=== PATIENT | female | born 1945 | race Hispanic/Latino ===

== ENCOUNTER 2018-01-29 11:30 | Emergency (ER) | payer OTHER ==
--- NOTE | 2018-01-29 14:38 | ER ---
Nurse's Notes [facility] Name: Joie John Age: 72 yrs Sex: Female : 1945 Arrival Date: 01/29/2018 Time: 11:35 Bed Waiting Private MD: Phyllis Paris Diagnosis: Presentation: 01/29 11:40 Presenting complaint: Patient states: Reports having headache and feeling dizzy for 7 aj days. Patient reports symptoms started when she began taking her HTN and DM medications. Transition of care: patient was not received from another setting of care. Onset of symptoms was January 23, 2018. Risk Assessment: Do you want to hurt yourself or someone else? Patient reports no desire to harm self or others. Initial Sepsis Screen: Does the patient meet any 2 criteria? No. Patient's initial sepsis screen is negative. Does the patient have a suspected source of infection? No. Patient's initial sepsis screen is negative. Care prior to arrival: None. 11:40 Method Of Arrival: Ambulatory aj 11:40 Acuity: STEVEN 3 aj Triage Assessment: 11:42 Headache History: The patient has had previous headaches. General: Appears in no aj apparent distress. comfortable, Behavior is calm, cooperative, appropriate for age. Pain: Complains of pain in face and scalp Pain Pain began 7 days ago Also complains of. Neuro: Level of Consciousness is awake, alert, obeys commands, Oriented to person, place, time, situation, Appropriate for age Cardiac Rehab Nurse are equal bilaterally Moves all extremities. Full function Gait is steady, Speech is normal, Facial symmetry appears normal, Pupils are PERRLA, Intact Reports dizziness, headache. Respiratory: Airway is patent Respiratory effort is even, unlabored, Respiratory pattern is regular, symmetrical. Derm: Skin is intact, is healthy with good turgor, Skin is pink, warm \T\ dry. normal. Historical: - Allergies: 11:42 No Known Allergies; aj - PMHx: 11:42 Diabetes - NIDDM; Hypertension; aj - PSHx: 11:42 None; aj - Immunization history:: Adult Immunizations up to date. - Social history:: Smoking status: Patient/guardian denies using tobacco. - Ebola Screening: : Patient negative for fever greater than or equal to 101.5 degrees Fahrenheit, and additional compatible Ebola Virus Disease symptoms Patient denies exposure to infectious person Patient denies travel to an Ebola-affected area in the 21 days before illness onset No symptoms or risks identified at this time. Vital Signs: 11:42 BP 136 / 78; Pulse 91; Resp 16; Temp 97.6; Pulse Ox 98% on R/A; Weight 54.88 kg; Height aj 5 ft. 2 in. (157.48 cm) (M); 11:42 Body Mass Index 22.13 (54.88 kg, 157.48 cm) aj ED Course: 11:35 Patient arrived in ED. mr 11:35 Phyllis Paris MD is Private Physician. mr 11:42 Triage completed. aj 11:45 Arm band placed on left wrist. Patient placed in waiting room, Patient notified of wait aj time. 14:18 Hemanth Sanchez MD is Attending Physician. kdr 14:24 Patient's name was called from ER lobby. No response. nicole 14:32 Patient's name was called from ER lobby. No response. aj 14:37 Patient's name was called from ER lobby. No response. aj Administered Medications: No medications were administered Outcome: 14:37 Eloped from waiting room, before seeing physician Time discovered patient gone: aj January 29, 2018 at 14:38 14:38 Patient left the ED. aj Signatures: Patricia Couch, RN RN dmPage Zhou RN RN aj Rittger, Kevin, MD MD kdr RiveraJosie mr
== END 2018-01-29 14:38 | disposition left against medical advice (07) ==
LOC: ER 11:30
DX: Z53.21 Procedure and treatment not carried out due to patient leaving prior to being seen by health care provider (principal)
CPT/HCPCS: 99281

== ENCOUNTER 2023-03-28 17:32 | Emergency (ER) | payer OTHER ==
--- OUTSIDE RECORDS SUMMARY | 2023-03-28 17:37 | XMS REPORT | Continuity of Care Document ---
:1945 Author Organization [facility] t Address [address] [place] [address] [place] [id number] Care Team Providers Name Role Phone Esteban, Chrissie Attending Clinician Unavailable Phyllis Paris Attending Clinician Unavailable Payers Payer Name Policy Type Policy Number Effective Date Expiration Date S [place] [id number] 2021 Common [employer]ALTHC[employer] DUAL 00:00:00 [facility] Problems Condition Condition Condition Status Onset Resolution Last Treating Co mments Source Name Details Category Date Date Treatment Clinician Date [id number] 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, - [facility]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, [facility] [id number] Decreased Problem Com mon hearing of [facility] left ear [facility] [id number] Stress at Problem Com mon home [facility] Diabetes Diabetes Problem Commo n mellitus DMII [facility] without without - [facility] complicati complicati [facility] [id number] Uncontroll Problem Co mmon ed type 2 [facility] diabetes - [facility] mellitus without [facility] complicati Medica on, [place] without long-term current use of insulin Essential Benign Problem Common hypertensi essential Spi rit on HTN [facility] Hyperlipid Hyperlipid Problem C ommon emia emia [facility] [id number] Hypoglycem Problem Co mmon ia [facility] [id number] Dizziness Problem Com mon [facility] Seasonal Seasonal Problem Commo n allergy allergies [facility] [id number] Bilateral Problem Comm on hearing [facility] loss, - [facility]I unspecifie [facility] loss type [facility] [id number] +5th digit Problem Co mmon eff [facility] 02/24/20*Ch - [facility]I ronic kidney [facility] disease, Medical stage 3 Center (moderate) Mild major Current Problem Comm on depression mild Spirit , single episode of - CH I episode major depressive [facility] disorder, Medical unspecifie Center d whether recurrent [id number] Blood Problem Common glucose [facility] lower than - [facility] prior [facility] [id number] Type 2 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 Social History Social Habit Start Date Stop Date Quantity Comments Source History of Tobacco Use Co mmon [facility] Sex Assigned At Com mon [facility] Smoking Status Start Date Stop Date Source Never Smoker [facility] Medications Ordered Filled Start Stop Current Ordering Indication Dosage Frequency Signature Comments Components Source Medication Medication Date Date Medication? Clinician (SIG) Name Name Contour Contour No BID Contour Test - Test - 02-19 Test - 00:00: 00 Contour Contour No BID Contour Test - Test - 02-19 Test - 00:00: 00 Contour Contour No BID Contour Test - Test - 02-19 Test - 00:00: 00 Contour Contour No BID Contour Test - Test - 02-19 Test - 00:00: 00 Contour Contour 0 No BID Contour Test - Test - 02-19 Test - 00:00: 00 ALPRAZolam ALPRAZolam 2020-05 No 1{table ALPRAZolam 0.25 MG 0.25 MG 0-12 t} 0.25 MG 00:00: 00 Triamcinolo Triamcinolo 2019-05 No 1{appli BID Triamcinol ne ne - cation_ one Acetonide Acetonide 00:00: to_affe Acetonide 0.1 % 0.1 % 00 cted_ar 0.1 % ea} Triamcinolo Triamcinolo 2019-05 No 1{appli BID Triamcinol ne ne 06-16 cation_ one Acetonide Acetonide 00:00: to_affe Acetonide 0.1 % 0.1 % 00 cted_ar 0.1 % ea} Triamcinolo Triamcinolo 2020- No 1{appli BID Triamcinol ne ne 06-16 cation_ one Acetonide Acetonide 00:00: to_affe Acetonide 0.1 % 0.1 % 00 cted_ar 0.1 % ea} Triamcinolo Triamcinolo 2020 No 1{appli BID Triamcinol ne ne 06-16 cation_ one Acetonide Acetonide 00:00: to_affe Acetonide 0.1 % 0.1 % 00 cted_ar 0.1 % ea} Triamcinolo Triamcinolo 2019-05 No 1{appli BID Triamcinol ne ne 06-16 cation_ one Acetonide Acetonide 00:00: to_affe Acetonide 0.1 % 0.1 % 00 cted_ar 0.1 % ea} Triamcinolo Triamcinolo 2019-05 No 1{appli BID Triamcinol ne ne 06-16 cation_ one Acetonide Acetonide 00:00: to_affe Acetonide 0.1 % 0.1 % 00 cted_ar 0.1 % ea} Triamcinolo Triamcinolo 2020- No 1{appli BID Triamcinol ne ne 06-16 cation_ one Acetonide Acetonide 00:00: to_affe Acetonide 0.1 % 0.1 % 00 cted_ar 0.1 % ea} Triamcinolo Triamcinolo 2020 No 1{appli BID Triamcinol ne ne 06-16 cation_ one Acetonide Acetonide 00:00: to_affe Acetonide 0.1 % 0.1 % 00 cted_ar 0.1 % ea} Triamcinolo Triamcinolo 2020 No 1{appli BID Triamcinol ne ne - cation_ one Acetonide Acetonide 00:00: to_affe Acetonide 0.1 % 0.1 % 00 cted_ar 0.1 % ea} Triamcinolo Triamcinolo 2020 No 1{appli BID Triamcinol ne ne 1-22 cation_ one Acetonide Acetonide 00:00: to_affe Acetonide 0.1 % 0.1 % 00 cted_ar 0.1 % ea} Triamcinolo Triamcinolo 2019-05 No 1{appli BID Triamcinol ne ne 1-22 cation_ one Acetonide Acetonide 00:00: to_affe Acetonide 0.1 % 0.1 % 00 cted_ar 0.1 % ea} Triamcinolo Triamcinolo 2019-05 No 1{appli BID Triamcinol ne ne 1-22 cation_ one Acetonide Acetonide 00:00: to_affe Acetonide 0.1 % 0.1 % 00 cted_ar 0.1 % ea} Citalopram Citalopram Yes Na Paris 1 tablet Common Hydrobromid Hydrobromid 1-17 S pirit e e 00:00: - [facility] Jardiance Jardiance 2018-0 2020- No Na Paris 1 tablet Common 4 04-04 Spirit 00:00: 00:00 - [facility]I 00 :00 [facility] Lancets Lancets 2017- Yes Na Paris as Comm on Ultra Fine Ultra Fine 2-11 directed Spirit 00:00: [facility] Contour Contour 2018-0 Yes Na Paris strip Com mon testing testing 830 Spirit strips strips 00:00: [facility] Crestor Crestor 2018-0 Yes Na Paris 1 tablet Common 830 Spirit 00:00: - [facility] Aspirin Aspirin Yes Na [place] 1 tablet Co mmon Adult Low Adult Low Spiri t Dose Dose - [facility] Tradjenta Tradjenta Yes Na Paris 1 tablet Common [facility] [place] 3 [place]ou[place] 3 Yes Na Paris 1 capsule C ommon [facility] Lisinopril Lisinopril Yes Na Paris 1 tablet Common [facility] Metformin Metformin Yes Na [place] 1 tablet Common HCl HCl with meals [facility] Sertraline Sertraline Yes Na [place] 1 tablet Common HCl HCl [facility] Loratadine Loratadine Yes Na [place] 1 tablet Common [facility] - [facility]I [facility] Triamcinolo Triamcinolo Yes Na [place] 1 Common ne ne applicatio Spirit Acetonide Acetonide n to - [facility]I affected [facility] metFORMIN metFORMIN No 1{table BID metFORMIN HCl 1000 MG HCl 1000 MG t_with_ HCl 1000 meals} MG Tradjenta 5 Tradjenta 5 No 1{table QD Tradjenta MG MG t} 5 MG Lisinopril Lisinopril No 1{table QD Lisinopril 2.5 MG 2.5 MG t} 2.5 MG Lancets Lancets No Lancets Ultra Fine Ultra Fine Ultra Fine - - - ALPRAZolam ALPRAZolam No 1{table ALPRAZolam 0.25 MG 0.25 MG t} 0.25 MG One Touch One Touch No QD One Touch Verio n/s Verio n/s Verio n/s [place] 3 Hou[place] 3 No 1{capsu QD [place] 3 1000 MG 1000 MG le} 1000 MG Tradjenta 5 Tradjenta 5 No 1{table QD Tradjenta MG MG t} 5 MG Glucometer Glucometer No Glucometer n/s n/s n/s Triamcinolo Triamcinolo No 1{appli BID Triamcinol ne ne cation_ one Acetonide Acetonide to_affe Acetonide 0.5 % 0.5 % cted_ar 0.5 % ea} Lisinopril Lisinopril No 1{table QD Lisinopril 2.5 MG 2.5 MG t} 2.5 MG Citalopram Citalopram No 1{table QD Citalopram Hydrobromid Hydrobromid t} Hydrobromi e 40 MG e 40 MG de 40 MG Loratadine Loratadine No 1{table QD Loratadine 10 MG 10 MG t} 10 MG Jardiance Jardiance No 1{table QD Jardiance 10 MG 10 MG t} 10 MG Lancets Lancets No Lancets Ultra Fine Ultra Fine Ultra Fine - - - metFORMIN metFORMIN No 1{table BID metFORMIN HCl 1000 MG HCl 1000 MG t_with_ HCl 1000 meals} MG Crestor 10 Crestor 10 No 1{table QD Crestor 10 MG MG t} MG Contour Contour No BID Contour testing testing testing strips N/S strips N/S strips N/S Aspirin Aspirin No 1{table QD Aspirin Adult Low Adult Low t} Adult Low Dose 81 MG Dose 81 MG Dose 81 MG Contour Contour No Contour Test - Test - Test - One Touch One Touch No QD One Touch Verio n/s Verio n/s Verio n/s Loratadine Loratadine No 1{table QD Loratadine 10 MG 10 MG t} 10 MG [place] 3 [place]ou[place] 3 No 1{capsu QD [place] 3 1000 MG 1000 MG le} 1000 MG metFORMIN metFORMIN No 1{table BID metFORMIN HCl 1000 MG HCl 1000 MG t_with_ HCl 1000 meals} MG One Touch One Touch No QD One Touch Verio n/s Verio n/s Verio n/s Contour Contour No Contour Test - Test - Test - Triamcinolo Triamcinolo No 1{appli BID Triamcinol ne ne cation_ one Acetonide Acetonide to_affe Acetonide 0.5 % 0.5 % cted_ar 0.5 % ea} Contour Contour No BID Contour testing testing testing strips N/S strips N/S strips N/S Crestor 10 Crestor 10 No 1{table QD Crestor 10 MG MG t} MG Citalopram Citalopram No 1{table QD Citalopram Hydrobromid Hydrobromid t} Hydrobromi e 40 MG e 40 MG de 40 MG Lancets Lancets No Lancets Ultra Fine Ultra Fine Ultra Fine - - - Jardiance Jardiance No 1{table QD Jardiance 10 MG 10 MG t} 10 MG Tradjenta 5 Tradjenta 5 No 1{table QD Tradjenta MG MG t} 5 MG ALPRAZolam ALPRAZolam No 1{table ALPRAZolam 0.25 MG 0.25 MG t} 0.25 MG Aspirin Aspirin No 1{table QD Aspirin Adult Low Adult Low t} Adult Low Dose 81 MG Dose 81 MG Dose 81 MG Glucometer Glucometer No Glucometer n/s n/s n/s Lisinopril Lisinopril No 1{table QD Lisinopril 2.5 MG 2.5 MG t} 2.5 MG Jardiance Jardiance No 1{table QD Jardiance 10 MG 10 MG t} 10 MG Glucometer Glucometer No Glucometer n/s n/s n/s Triamcinolo Triamcinolo No 1{appli BID Triamcinol ne ne cation_ one Acetonide Acetonide to_affe Acetonide 0.5 % 0.5 % cted_ar 0.5 % ea} Lancets Lancets No Lancets Ultra Fine Ultra Fine Ultra Fine - - - Crestor 10 Crestor 10 No 1{table QD Crestor 10 MG MG t} MG Contour Contour No BID Contour testing testing testing strips N/S strips N/S strips N/S metFORMIN metFORMIN No 1{table BID metFORMIN HCl 1000 MG HCl 1000 MG t_with_ HCl 1000 meals} MG Citalopram Citalopram No 1{table QD Citalopram Hydrobromid Hydrobromid t} Hydrobromi e 40 MG e 40 MG de 40 MG Loratadine Loratadine No 1{table QD Loratadine 10 MG 10 MG t} 10 MG Aspirin Aspirin No 1{table QD Aspirin Adult Low Adult Low t} Adult Low Dose 81 MG Dose 81 MG Dose 81 MG One Touch One Touch No QD One Touch Verio n/s Verio n/s Verio n/s Tradjenta 5 Tradjenta 5 No 1{table QD Tradjenta MG MG t} 5 MG [place] 3 Houma 3 No 1{capsu QD [place] 3 1000 MG 1000 MG le} 1000 MG Contour Contour No Contour Test - Test - Test - ALPRAZolam ALPRAZolam No 1{table ALPRAZolam 0.25 MG 0.25 MG t} 0.25 MG Lisinopril Lisinopril No 1{table QD Lisinopril 2.5 MG 2.5 MG t} 2.5 MG Jardiance Jardiance No 1{table QD Jardiance 10 MG 10 MG t} 10 MG Glucometer Glucometer No Glucometer n/s n/s n/s Triamcinolo Triamcinolo No 1{appli BID Triamcinol ne ne cation_ one Acetonide Acetonide to_affe Acetonide 0.5 % 0.5 % cted_ar 0.5 % ea} Lancets Lancets No Lancets Ultra Fine Ultra Fine Ultra Fine - - - Crestor 10 Crestor 10 No 1{table QD Crestor 10 MG MG t} MG Contour Contour No BID Contour testing testing testing strips N/S strips N/S strips N/S metFORMIN metFORMIN No 1{table BID metFORMIN HCl 1000 MG HCl 1000 MG t_with_ HCl 1000 meals} MG Citalopram Citalopram No 1{table QD Citalopram Hydrobromid Hydrobromid t} Hydrobromi e 40 MG e 40 MG de 40 MG Loratadine Loratadine No 1{table QD Loratadine 10 MG 10 MG t} 10 MG Aspirin Aspirin No 1{table QD Aspirin Adult Low Adult Low t} Adult Low Dose 81 MG Dose 81 MG Dose 81 MG One Touch One Touch No QD One Touch Verio n/s Verio n/s Verio n/s Tradjenta 5 Tradjenta 5 No 1{table QD Tradjenta MG MG t} 5 MG [place] 3 Hou[place] 3 No 1{capsu QD [place] 3 1000 MG 1000 MG le} 1000 MG Contour Contour No Contour Test - Test - Test - ALPRAZolam ALPRAZolam No 1{table ALPRAZolam 0.25 MG 0.25 MG t} 0.25 MG Lisinopril Lisinopril No 1{table QD Lisinopril 2.5 MG 2.5 MG t} 2.5 MG Jardiance Jardiance No 1{table QD Jardiance 10 MG 10 MG t} 10 MG Glucometer Glucometer No Glucometer n/s n/s n/s Triamcinolo Triamcinolo No 1{appli BID Triamcinol ne ne cation_ one Acetonide Acetonide to_affe Acetonide 0.5 % 0.5 % cted_ar 0.5 % ea} Lancets Lancets No Lancets Ultra Fine Ultra Fine Ultra Fine - - - Crestor 10 Crestor 10 No 1{table QD Crestor 10 MG MG t} MG Contour Contour No BID Contour testing testing testing strips N/S strips N/S strips N/S metFORMIN metFORMIN No 1{table BID metFORMIN HCl 1000 MG HCl 1000 MG t_with_ HCl 1000 meals} MG Citalopram Citalopram No 1{table QD Citalopram Hydrobromid Hydrobromid t} Hydrobromi e 40 MG e 40 MG de 40 MG Loratadine Loratadine No 1{table QD Loratadine 10 MG 10 MG t} 10 MG Aspirin Aspirin No 1{table QD Aspirin Adult Low Adult Low t} Adult Low Dose 81 MG Dose 81 MG Dose 81 MG One Touch One Touch No QD One Touch Verio n/s Verio n/s Verio n/s Tradjenta 5 Tradjenta 5 No 1{table QD Tradjenta MG MG t} 5 MG [place] 3 [place]ou[place] 3 No 1{capsu QD [place] 3 1000 MG 1000 MG le} 1000 MG Contour Contour No Contour Test - Test - Test - ALPRAZolam ALPRAZolam No 1{table ALPRAZolam 0.25 MG 0.25 MG t} 0.25 MG Lisinopril Lisinopril No 1{table QD Lisinopril 2.5 MG 2.5 MG t} 2.5 MG Crestor 10 Crestor 10 No 1{table QD Crestor 10 MG MG t} MG Contour Contour No Contour Test - Test - Test - Jardiance Jardiance No 1{table QD Jardiance 10 MG 10 MG t} 10 MG Tradjenta 5 Tradjenta 5 No 1{table QD Tradjenta MG MG t} 5 MG Aspirin Aspirin No 1{table QD Aspirin Adult Low Adult Low t} Adult Low Dose 81 MG Dose 81 MG Dose 81 MG [place] 3 [place] 3 No 1{capsu QD [place] 3 1000 MG 1000 MG le} 1000 MG Loratadine Loratadine No 1{table QD Loratadine 10 MG 10 MG t} 10 MG Triamcinolo Triamcinolo No 1{appli BID Triamcinol ne ne cation_ one Acetonide Acetonide to_affe Acetonide 0.5 % 0.5 % cted_ar 0.5 % ea} Citalopram Citalopram No 1{table QD Citalopram Hydrobromid Hydrobromid t} Hydrobromi e 40 MG e 40 MG de 40 MG One Touch One Touch No QD One Touch Verio n/s Verio n/s Verio n/s ALPRAZolam ALPRAZolam No 1{table ALPRAZolam 0.25 MG 0.25 MG t} 0.25 MG Lancets Lancets No Lancets Ultra Fine Ultra Fine Ultra Fine - - - Glucometer Glucometer No Glucometer n/s n/s n/s metFORMIN metFORMIN No 1{table BID metFORMIN HCl 1000 MG HCl 1000 MG t_with_ HCl 1000 meals} MG Lisinopril Lisinopril No 1{table QD Lisinopril 2.5 MG 2.5 MG t} 2.5 MG Contour Contour No BID Contour testing testing testing strips N/S strips N/S strips N/S Crestor 10 Crestor 10 No 1{table QD Crestor 10 MG MG t} MG Contour Contour No Contour Test - Test - Test - Jardiance Jardiance No 1{table QD Jardiance 10 MG 10 MG t} 10 MG Tradjenta 5 Tradjenta 5 No 1{table QD Tradjenta MG MG t} 5 MG Aspirin Aspirin No 1{table QD Aspirin Adult Low Adult Low t} Adult Low Dose 81 MG Dose 81 MG Dose 81 MG [place] 3 [place] 3 No 1{capsu QD [place] 3 1000 MG 1000 MG le} 1000 MG Loratadine Loratadine No 1{table QD Loratadine 10 MG 10 MG t} 10 MG Triamcinolo Triamcinolo No 1{appli BID Triamcinol ne ne cation_ one Acetonide Acetonide to_affe Acetonide 0.5 % 0.5 % cted_ar 0.5 % ea} Citalopram Citalopram No 1{table QD Citalopram Hydrobromid Hydrobromid t} Hydrobromi e 40 MG e 40 MG de 40 MG One Touch One Touch No QD One Touch Verio n/s Verio n/s Verio n/s ALPRAZolam ALPRAZolam No 1{table ALPRAZolam 0.25 MG 0.25 MG t} 0.25 MG Lancets Lancets No Lancets Ultra Fine Ultra Fine Ultra Fine - - - Glucometer Glucometer No Glucometer n/s n/s n/s metFORMIN metFORMIN No 1{table BID metFORMIN HCl 1000 MG HCl 1000 MG t_with_ HCl 1000 meals} MG Lisinopril Lisinopril No 1{table QD Lisinopril 2.5 MG 2.5 MG t} 2.5 MG Contour Contour No BID Contour testing testing testing strips N/S strips N/S strips N/S Glucometer Glucometer No Glucometer n/s n/s n/s Crestor 10 Crestor 10 No 1{table QD Crestor 10 MG MG t} MG Jardiance Jardiance No 1{table QD Jardiance 10 MG 10 MG t} 10 MG [place] 3 [place]ou[place] 3 No 1{capsu QD [place] 3 1000 MG 1000 MG le} 1000 MG Triamcinolo Triamcinolo No 1{appli BID Triamcinol ne ne cation_ one Acetonide Acetonide to_affe Acetonide 0.5 % 0.5 % cted_ar 0.5 % ea} Loratadine Loratadine No 1{table QD Loratadine 10 MG 10 MG t} 10 MG Citalopram Citalopram No 1{table QD Citalopram Hydrobromid Hydrobromid t} Hydrobromi e 40 MG e 40 MG de 40 MG Aspirin Aspirin No 1{table QD Aspirin Adult Low Adult Low t} Adult Low Dose 81 MG Dose 81 MG Dose 81 MG metFORMIN metFORMIN No 1{table BID metFORMIN HCl 1000 MG HCl 1000 MG t_with_ HCl 1000 meals} MG Tradjenta 5 Tradjenta 5 No 1{table QD Tradjenta MG MG t} 5 MG Lisinopril Lisinopril No 1{table QD Lisinopril 2.5 MG 2.5 MG t} 2.5 MG Lancets Lancets No Lancets Ultra Fine Ultra Fine Ultra Fine - - - ALPRAZolam ALPRAZolam No 1{table ALPRAZolam 0.25 MG 0.25 MG t} 0.25 MG One Touch One Touch No QD One Touch Verio n/s Verio n/s Verio n/s Glucometer Glucometer No Glucometer n/s n/s n/s Crestor 10 Crestor 10 No 1{table QD Crestor 10 MG MG t} MG Jardiance Jardiance No 1{table QD Jardiance 10 MG 10 MG t} 10 MG [place] 3 [place]ou[place] 3 No 1{capsu QD [place] 3 1000 MG 1000 MG le} 1000 MG Triamcinolo Triamcinolo No 1{appli BID Triamcinol ne ne cation_ one Acetonide Acetonide to_affe Acetonide 0.5 % 0.5 % cted_ar 0.5 % ea} Loratadine Loratadine No 1{table QD Loratadine 10 MG 10 MG t} 10 MG Citalopram Citalopram No 1{table QD Citalopram Hydrobromid Hydrobromid t} Hydrobromi e 40 MG e 40 MG de 40 MG Aspirin Aspirin No 1{table QD Aspirin Adult Low Adult Low t} Adult Low Dose 81 MG Dose 81 MG Dose 81 MG metFORMIN metFORMIN No 1{table BID metFORMIN HCl 1000 MG HCl 1000 MG t_with_ HCl 1000 meals} MG Tradjenta 5 Tradjenta 5 No 1{table QD Tradjenta MG MG t} 5 MG Lisinopril Lisinopril No 1{table QD Lisinopril 2.5 MG 2.5 MG t} 2.5 MG Lancets Lancets No Lancets Ultra Fine Ultra Fine Ultra Fine - - - ALPRAZolam ALPRAZolam No 1{table ALPRAZolam 0.25 MG 0.25 MG t} 0.25 MG One Touch One Touch No QD One Touch Verio n/s Verio n/s Verio n/s Glucometer Glucometer No Glucometer n/s n/s n/s Crestor 10 Crestor 10 No 1{table QD Crestor 10 MG MG t} MG Jardiance Jardiance No 1{table QD Jardiance 10 MG 10 MG t} 10 MG [place] 3 [place] 3 No 1{capsu QD [place] 3 1000 MG 1000 MG le} 1000 MG Triamcinolo Triamcinolo No 1{appli BID Triamcinol ne ne cation_ one Acetonide Acetonide to_affe Acetonide 0.5 % 0.5 % cted_ar 0.5 % ea} Loratadine Loratadine No 1{table QD Loratadine 10 MG 10 MG t} 10 MG Citalopram Citalopram No 1{table QD Citalopram Hydrobromid Hydrobromid t} Hydrobromi e 40 MG e 40 MG de 40 MG Aspirin Aspirin No 1{table QD Aspirin Adult Low Adult Low t} Adult Low Dose 81 MG Dose 81 MG Dose 81 MG metFORMIN metFORMIN No 1{table BID metFORMIN HCl 1000 MG HCl 1000 MG t_with_ HCl 1000 meals} MG Tradjenta 5 Tradjenta 5 No 1{table QD Tradjenta MG MG t} 5 MG Lisinopril Lisinopril No 1{table QD Lisinopril 2.5 MG 2.5 MG t} 2.5 MG Lancets Lancets No Lancets Ultra Fine Ultra Fine Ultra Fine - - - ALPRAZolam ALPRAZolam No 1{table ALPRAZolam 0.25 MG 0.25 MG t} 0.25 MG One Touch One Touch No QD One Touch Verio n/s Verio n/s Verio n/s Glucometer Glucometer No Glucometer n/s n/s n/s Crestor 10 Crestor 10 No 1{table QD Crestor 10 MG MG t} MG Jardiance Jardiance No 1{table QD Jardiance 10 MG 10 MG t} 10 MG [place] 3 [place] 3 No 1{capsu QD [place] 3 1000 MG 1000 MG le} 1000 MG Triamcinolo Triamcinolo No 1{appli BID Triamcinol ne ne cation_ one Acetonide Acetonide to_affe Acetonide 0.5 % 0.5 % cted_ar 0.5 % ea} Loratadine Loratadine No 1{table QD Loratadine 10 MG 10 MG t} 10 MG Citalopram Citalopram No 1{table QD Citalopram Hydrobromid Hydrobromid t} Hydrobromi e 40 MG e 40 MG de 40 MG Aspirin Aspirin No 1{table QD Aspirin Adult Low Adult Low t} Adult Low Dose 81 MG Dose 81 MG Dose 81 MG metFORMIN metFORMIN No 1{table BID metFORMIN HCl 1000 MG HCl 1000 MG t_with_ HCl 1000 meals} MG Tradjenta 5 Tradjenta 5 No 1{table QD Tradjenta MG MG t} 5 MG Lisinopril Lisinopril No 1{table QD Lisinopril 2.5 MG 2.5 MG t} 2.5 MG Lancets Lancets No Lancets Ultra Fine Ultra Fine Ultra Fine - - - ALPRAZolam ALPRAZolam No 1{table ALPRAZolam 0.25 MG 0.25 MG t} 0.25 MG One Touch One Touch No QD One Touch Verio n/s Verio n/s Verio n/s Glucometer Glucometer No Glucometer n/s n/s n/s Crestor 10 Crestor 10 No 1{table QD Crestor 10 MG MG t} MG Jardiance Jardiance No 1{table QD Jardiance 10 MG 10 MG t} 10 MG [place] 3 [place] 3 No 1{capsu QD [place] 3 1000 MG 1000 MG le} 1000 MG Triamcinolo Triamcinolo No 1{appli BID Triamcinol ne ne cation_ one Acetonide Acetonide to_affe Acetonide 0.5 % 0.5 % cted_ar 0.5 % ea} Loratadine Loratadine No 1{table QD Loratadine 10 MG 10 MG t} 10 MG Citalopram Citalopram No 1{table QD Citalopram Hydrobromid Hydrobromid t} Hydrobromi e 40 MG e 40 MG de 40 MG Aspirin Aspirin No 1{table QD Aspirin Adult Low Adult Low t} Adult Low Dose 81 MG Dose 81 MG Dose 81 MG Vital Signs Vital Name Observation Time Observation Value Comments Source height 2021-10-09 09:40:00 65.00 [in_i] [facility] weight 2021-10-09 09:40:00 111.6 [lb_av] [facility] temperature 2021-10-09 09:40:00 97.6 [degF] [facility] bmi 2021-10-09 09:40:00 18.57 kg/m2 [facility] oximetry 2021-10-09 09:40:00 98 % [facility] respiratory rate 2021-10-09 09:40:00 16 /min Comm on [facility] blood pressure 2021-10-09 09:40:00 132 mm[Hg] [facility] systolic [facility] blood pressure 2021-10-09 09:40:00 60 mm[Hg] [facility] diastolic [facility] height 2021-07-10 11:00:00 65.00 [in_i] [facility] weight 2021-07-10 11:00:00 107.4 [lb_av] [facility] temperature 2021-07-10 11:00:00 98.7 [degF] [facility] bmi 2021-07-10 11:00:00 17.87 kg/m2 [facility] oximetry 2021-07-10 11:00:00 98 % [facility] respiratory rate 2021-07-10 11:00:00 16 /min Comm on [facility] blood pressure 2021-07-10 11:00:00 134 mm[Hg] Common [facility] - systolic [facility] blood pressure 2021-07-10 11:00:00 80 mm[Hg] [facility] - diastolic [facility] height 2021-07-10 11:00:00 65.00 [in_i] [facility] - [facility] weight 2021-07-10 11:00:00 107.4 [lb_av] [facility] - [facility] temperature 2021-07-10 11:00:00 98.7 [degF] [facility] - [facility] bmi 2021-07-10 11:00:00 17.87 kg/m2 [facility] oximetry 2021-07-10 11:00:00 98 % [facility] - [facility] blood pressure 2021-07-10 11:00:00 134 mm[Hg] [facility] - systolic [facility] blood pressure 2021-07-10 11:00:00 80 mm[Hg] [facility] - diastolic [facility] height 2021-04-09 11:40:00 65.00 [in_i] [facility] weight 2021-04-09 11:40:00 114 [lb_av] [facility] temperature 2021-04-09 11:40:00 97.6 [degF] [facility] bmi 2021-04-09 11:40:00 18.97 kg/m2 [facility] oximetry 2021-04-09 11:40:00 98 % [facility] - [facility] blood pressure 2021-04-09 11:40:00 150 mm[Hg] [facility] - systolic [facility] blood pressure 2021-04-09 11:40:00 69 mm[Hg] [facility] - diastolic [facility] height 2021-03-06 09:20:00 65.00 [in_i] [facility] - [facility] weight 2021-03-06 09:20:00 114 [lb_av] [facility] temperature 2021-03-06 09:20:00 97.2 [degF] [facility] - [facility] bmi 2021-03-06 09:20:00 18.97 kg/m2 [facility] oximetry 2021-03-06 09:20:00 99 % [facility] respiratory rate 2021-03-06 09:20:00 20 /min Comm on [facility] blood pressure 2021-03-06 09:20:00 126 mm[Hg] Common [facility] - systolic [facility] blood pressure 2021-03-06 09:20:00 70 mm[Hg] Common [facility] - diastolic [facility] Procedures This patient has no known procedures. Encounters Start End Encounter Admission Attending Care Care Encounter Source Date/Time Date/Time Type Type Clinicians Facility Department ID 2022-11-29 Outpatient Esteban, STLMLC STLMLC [id number] Common 14:27:00 Chrissie [id number] [facility] 2022-02-07 Outpatient [place], Na STLMLC STLMLC [id number] Common 08:48:00 [facility] 2021-10-05 Outpatient [place], Na STLMLC STLMLC [id number] Common 10:53:00 [facility] 2021-07-06 Outpatient [place], Na STLMLC STLMLC [id number] Common 09:10:01 [facility] 2021-06-20 Outpatient [place], Na STLMLC STLMLC [id number] Common 13:58:50 [id number] [facility] 2021-06-20 Outpatient [place], Na STLMLC STLMLC [id number] Common 13:58:28 [id number] [facility] 2021-06-20 Outpatient [place], Na STLMLC STLMLC [id number] Common 12:53:25 [facility] 2021-06-20 Outpatient [place], Na STLMLC STLMLC [id number] 2 Common 12:51:15 [facility] 2021-06-20 Outpatient [place], Na STLMLC STLMLC [id number] Common 12:50:42 [id number] [facility] 2021-06-20 Outpatient [place], Na STLMLC STLMLC [id number] Common 12:31:17 [id number] [facility] 2021-06-20 Outpatient [place], Na STLMLC STLMLC [id number] Common 12:06:40 [id number] [facility] 2021-06-20 Outpatient [place], Na STLMLC STLMLC [id number] Common 12:05:47 [id number] [facility] 2021-06-20 Outpatient [place], Na STLMLC STLMLC [id number] Common 11:37:36 [id number] [facility] 2021-06-20 Outpatient [place], Na STLMLC STLMLC [id number] Common 11:18:14 [id number] [facility] 2021-06-20 Outpatient [place], Na STLMLC STLMLC [id number] Common 11:01:33 [id number] [facility] 2022-02-19 2022-02-19 (TEL) STLMLC STLMLC [id number] Co mmon 00:00:00 00:00:00 [facility] 2022-02-11 2022-02-11 OFFICE STLMLC STLMLC [id number] Co mmon 00:00:00 00:00:00 [facility]IT [facility] [address] 2021-12-24 2021-12-24 (TEL) STLMLC STLMLC [id number] Co mmon 00:00:00 00:00:00 [facility] 2021-10-09 2021-10-09 OFFICE STLMLC STLMLC [id number] Co mmon 00:00:00 00:00:00 [facility]IT [facility] [address] 2021-07-12 2021-07-12 (TEL) STLMLC STLMLC [id number] Co mmon 00:00:00 00:00:00 [facility] 2021-07-10 2021-07-10 OFFICE STLMLC STLMLC [id number] Co mmon 00:00:00 00:00:00 VISIT EST [facility] LEVEL 3 - [facility] 2021-07-10 2021-07-10 SUB ANNUAL STLMLC STLMLC [id number] Common 00:00:00 00:00:00 MCR [facility] VISIT [facility] 2021-04-09 2021-04-09 OFFICE STLMLC STLMLC [id number] Co mmon 00:00:00 00:00:00 VISIT EST Spir [facility] PT LEVEL 3 - [facility] 2021-03-06 2021-03-06 OFFICE STLMLC STLMLC [id number] Co mmon 00:00:00 00:00:00 [facility] LEVEL 4 [facility] 2020-12-27 2020-12-27 Outpatient STLMLC STLMLC [id number] Common 00:00:00 00:00:00 [facility] 2020-12-25 2020-12-25 Outpatient STLMLC STLMLC [id number] Common 00:00:00 00:00:00 [facility] 2020-11-21 2020-11-21 (TEL) STLMLC STLMLC [id number] Co mmon 00:00:00 00:00:00 [facility] 2020-11-16 2020-11-16 Outpatient STLMLC STLMLC [id number] Common 00:00:00 00:00:00 [facility] 2020-10-30 2020-10-30 Outpatient STLMLC STLMLC [id number] Common 00:00:00 00:00:00 [facility] 2020-09-21 2020-09-21 Outpatient STLMLC STLMLC [id number] Common 00:00:00 00:00:00 [facility] 2020-09-05 2020-09-05 Outpatient STLMLC STLMLC [id number] Common 00:00:00 00:00:00 [facility] 2020-04-17 2020-04-17 Outpatient STLMLC STLMLC [id number] Common 00:00:00 00:00:00 [facility] 2020-04-17 2020-04-17 Outpatient STLMLC STLMLC [id number] Common 00:00:00 00:00:00 [facility] 2020-04-15 2020-04-15 Outpatient STLMLC STLMLC [id number] Common 00:00:00 00:00:00 [facility] 2020-04-14 2020-04-14 Outpatient STLMLC STLMLC [id number] Common 00:00:00 00:00:00 [facility] 2020-04-13 2020-04-13 Outpatient STLMLC STLMLC [id number] Common 00:00:00 00:00:00 [facility] 2020-01-11 2020-01-11 [facility] [id number] Common 19:57:00 19:57:[address] [facility] 2020-01-10 2020-01-10 [facility] [id number] Common 15:00:00 15:00:[address] [facility] 2019-06-11 2019-06-11 [facility] [id number] Common 16:00:00 16:00:[address] [facility] 2019-03-01 2019-03-01 [facility] [id number] Common 10:00:00 10:00:[address] [facility] 2018-11-27 2018-11-27 [facility] [id number] Common 08:40:00 08:40:[address] [facility] 2018-08-27 2018-08-27 [facility] [id number] Common 15:55:00 15:55:[address] [facility] 2018-08-25 2018-08-25 [facility] [id number] Common 16:40:00 16:40:[address] [facility] 2018-05-05 2018-05-05 [facility] [id number] Common 11:00:00 11:00:[address] [facility] 2018-04-13 2018-04-13 [facility] [id number] Common 06:44:00 06:44:[address] [facility] 2018-02-10 2018-02-10 [facility] [id number] Common 09:15:00 09:15:[address] [facility] 2018-01-27 2018-01-27 [facility] [id number] Common 10:00:00 10:00:[address] [facility] 2018-01-22 2018-01-22 [facility] [id number] Common 09:00:00 09:00:[address] [facility] Results This patient has no known results.
[2023-03-28] MEDS ORDERED: ONDANSETRON 4 MG/2 ML VIAL ONE (19:40)
[2023-03-28] MEDS ORDERED: NA CHLORIDE 0.9% 1,000 ML ONE (19:41)
[2023-03-28 19:44] LABS: Absolute Lymphocytes (CBC) 0.9 K/uL (0.7-4.9); Hematocrit 38.8 % (36.0-45.0); Lymphocytes % 8.9 % (15.3-44.8); MCV 90.6 fL (80-100); Platelets 152 thou/uL (152-406); RBC Red Blood Cell Count 4.28 M/uL (3.86-4.86)
[2023-03-28 19:54] LABS: Bilirubin Total 0.4 mg/dL (0.2-1.0); Potassium 5.5 mEq/L (3.5-5.1); Protein, Total 7.8 g/dL (6.4-8.2)
[2023-03-28 21:03] LABS: Blood Morphology Comment NOT SEEN (NOT SEEN); Platelet Estimate ADEQ; White Blood Cell Scan OK (OK)
--- NOTE | 2023-03-28 21:04 | ER ---
Nurse's Notes [facility] Name: Joie John Age: 78 yrs Sex: Female : 1945 Arrival Date: 03/28/2023 Time: 17:32 Bed 13 Private MD: Diagnosis: Diarrhea, unspecified;Dehydration Presentation: 03/28 17:44 Chief complaint: Patient's son or daughter states: Pt has been weak and has had nausea, cm10 vomiting and diarrhea onset today. No sick contacts. Coronavirus screen: Vaccine status: Patient reports receiving the 2nd dose of the covid vaccine. Client denies travel out of the [place] in the last 14 days. Ebola Screen: Patient denies travel to an Ebola-affected area in the 21 days before illness onset. No symptoms or risks identified at this time. Initial Sepsis Screen: Does the patient meet any 2 criteria? No. Patient's initial sepsis screen is negative. Does the patient have a suspected source of infection? No. Patient's initial sepsis screen is negative. Risk Assessment: Do you want to hurt yourself or someone else? Patient reports no desire to harm self or others. Onset of symptoms was March 28, 2023. 17:44 Method Of Arrival: Wheelchair cm10 17:44 Acuity: STEVEN 3 cm10 Historical: - Allergies: 17:46 No Known Allergies; cm10 - PMHx: 17:46 Diabetes - NIDDM; Hypertension; cm10 - Immunization history:: Adult Immunizations unknown. - Social history:: Smoking status: Patient denies any tobacco usage or history of. Screenin:45 [facility] ED Fall Risk Assessment (Adult) History of falling in the last 3 months, km8 including since admission No falls in past 3 months (0 pts) Confusion or Disorientation No (0 pts) Intoxicated or Sedated No (0 pts) Impaired Gait Yes (1 pt) Mobility Assist Device Used No (0 pt) Altered Elimination No (0 pt) Score/Fall Risk Level 0 - 2 = Low Risk Oriented to surroundings, Maintained a safe environment, Educated pt \T\ family on fall prevention, incl call for assistance when getting out of bed, Assessed \T\ reinforced patient's understanding of fall precautions. Abuse screen: Denies threats or abuse. Denies injuries from another. Nutritional screening: No deficits noted. Tuberculosis screening: No symptoms or risk factors identified. Assessment: 19:01 Reassessment: Patient appears in no apparent distress at this time. Patient and/or db family updated on plan of care and expected duration. Pain level reassessed. Patient is alert, oriented x 3, equal unlabored respirations, skin warm/dry/pink. NAUSEA, VOMITING, DIARRHEA, CHEST PAIN. DENIES CHEST PAIN NOW. General: Appears in no apparent distress. comfortable, Behavior is calm, cooperative. Pain: Complains of pain in chest. Neuro: Level of Consciousness is awake, alert, obeys commands, Oriented to person, place, time, situation. Respiratory: Airway is patent Respiratory effort is even, unlabored, Respiratory pattern is regular, symmetrical. GI: Abdomen is flat, Reports diarrhea, nausea. 19:45 General: Appears in no apparent distress. comfortable, Behavior is calm, cooperative. km8 19:45 Pain: Complains of pain in head Pain currently is 5 out of 10 on a pain scale. Neuro: km8 Level of Consciousness is awake, alert, obeys commands, Oriented to person, place, time, situation, Denies dizziness. Cardiovascular: Denies chest pain, Capillary refill < 3 seconds Patient's skin is warm and dry. Respiratory: Airway is patent Respiratory effort is even, unlabored, Respiratory pattern is regular, symmetrical. GI: No signs and/or symptoms were reported involving the gastrointestinal system. Abdomen is flat, Reports diarrhea, nausea. : No signs and/or symptoms were reported regarding the genitourinary system. EENT: No signs and/or symptoms were reported regarding the EENT system. Derm: No signs and/or symptoms reported regarding the dermatologic system. Skin is intact, Skin is dry, Skin is normal, Skin temperature is warm. Musculoskeletal: No signs and/or symptoms reported regarding the musculoskeletal system. Range of motion: intact in all extremities. Vital Signs: 17:44 BP 137 / 60; Pulse 81; Resp 18; Temp 97.1(TE); Pulse Ox 100% ; Weight 47.63 kg; Height cm10 5 ft. 3 in. ; 19:00 BP 139 / 61; Pulse 83; Resp 23; Pulse Ox 100% on R/A; km8 20:00 BP 134 / 64; Pulse 90; Resp 18; Pulse Ox 100% on R/A; km8 21:00 BP 127 / 64; Pulse 89; Resp 18; Pulse Ox 98% on R/A; km8 21:30 BP 125 / 61; Pulse 89; Resp 18; Pulse Ox 96% on R/A; km8 17:44 Body Mass Index 18.60 (47.63 kg, 160.02 cm) cm10 ED Course: 17:36 Patient arrived in ED. ts1 17:40 Vincent Rosen MD is Attending Physician. cp3 17:46 Triage completed. cm10 17:46 Arm band placed on Patient placed in waiting room. cm10 17:49 EKG completed in triage. Results shown to MD. cm10 17:49 EKG done, by ED staff, reviewed by Vincent Rosen MD. 10 18:56 Jillian Guthrie, RN is Primary Nurse. db 19:12 Cary Eaton, RN is Primary Nurse. km8 19:23 CBC with Diff Sent. km8 19:23 CMP Sent. km8 19:23 Lipase Sent. km8 19:24 Inserted saline lock: 20 gauge in right antecubital area, using aseptic technique. km8 Blood collected. 19:45 Patient has correct armband on for positive identification. Bed in low position. Call km8 light in reach. Side rails up X 1. Client placed on continuous cardiac and pulse oximetry monitoring. NIBP monitoring applied. monitoring tech on. 21:54 IV discontinued, intact, bleeding controlled, No redness/swelling at site. Pressure km8 dressing applied. 21:54 No provider procedures requiring assistance completed. km8 21:56 Provided Education on: d/c teaching. km8 Administered Medications: 19:31 Drug: NS 0.9% IV 1000 ml IV at 1 bolus Per protocol; 1000 mL bolus Route: IV; Rate: 1 km8 bolus; Site: right antecubital; 21:57 Follow up: IV Status: Completed infusion; IV Intake: 1000ml km8 19:31 Drug: Ondansetron IVP 4 mg IVP once; over 2 minutes Route: IVP; Site: right antecubital;km8 21:57 Follow up: Response: No adverse reaction km8 21:57 Not Given (Patient Refused): morphineor iv 4 mg IVP once over 4 mins km8 21:58 Not Given (pt left before infusion given): ns 0.9% 250 ml IV at bolus once km8 Medication: 21:54 VIS not applicable for this client. km8 Intake: :57 IV: 1000ml; Total: 1000ml. km8 Outcome: 21:04 Discharge ordered by . cp3 :54 Discharged to home via wheelchair, with family, km8 :54 Condition: good :54 Discharge instructions given to patient, family, Instructed on discharge instructions, follow up and referral plans. medication usage, Demonstrated understanding of instructions, follow-up care, medications, Prescriptions given X 2, :58 Patient left the ED. km8 Signatures: Vincent Rosen MD MD cp3 Jillian Guthrie, RN RN db Maureen Sahu PAS PAS ts1 Beverly Jarquin, RN RN cm10 Cary Eaton RN RN km8
--- NOTE | 2023-03-28 21:05 | EDPHYS ---
Physician Documentation [facility] Name: Joie John Age: 78 yrs Sex: Female : 1945 Arrival Date: 03/28/2023 Time: 17:32 Bed 13 Private MD: ED Physician Vincent Rosen HPI: 03/28 21:31 This 78 yrs old Female presents to ER via Wheelchair with complaints of cp3 General Weakness, Nausea/Vomiting/Diarrhea. 21:31 The patient presents to the emergency department with nausea, vomiting. Onset: The cp3 symptoms/episode began/occurred acutely, 1 day(s) ago. The symptoms are aggravated by movement. Associated signs and symptoms: Pertinent positives: dizziness. Severity of symptoms: in the emergency department the symptoms have improved. The patient has experienced a previous episode. Historical: - Allergies: 17:46 No Known Allergies; cm10 - PMHx: 17:46 Diabetes - NIDDM; Hypertension; cm10 - Immunization history:: Adult Immunizations unknown. - Social history:: Smoking status: Patient denies any tobacco usage or history of. ROS: 21:31 Eyes: Negative for injury, pain, redness, and discharge, ENT: Negative for injury, cp3 pain, and discharge, Neck: Negative for injury, pain, and swelling, Cardiovascular: Negative for chest pain, palpitations, and edema, Back: Negative for injury and pain, MS/Extremity: Negative for injury and deformity, Skin: Negative for injury, rash, and discoloration, 21:31 Abdomen/GI: Positive for nausea and vomiting, diarrhea, 21:31 Neuro: Positive for dizziness, Exam: 21:31 Constitutional: This is a well developed, well nourished patient who is awake, alert, cp3 and in no acute distress. Head/Face: Normocephalic, atraumatic. Eyes: Pupils equal round and reactive to light, extra-ocular motions intact. Lids and lashes normal. Conjunctiva and sclera are non-icteric and not injected. Cornea within normal limits. Periorbital areas with no swelling, redness, or edema. ENT: Nares patent. No nasal discharge, no septal abnormalities noted. Tympanic membranes are normal and external auditory canals are clear. Oropharynx with no redness, swelling, or masses, exudates, or evidence of obstruction, uvula midline. Mucous membranes moist. Neck: Trachea midline, no thyromegaly or masses palpated, and no cervical lymphadenopathy. Supple, full range of motion without nuchal rigidity, or vertebral point tenderness. No Meningismus. Chest/axilla: Normal chest wall appearance and motion. Nontender with no deformity. No lesions are appreciated. Cardiovascular: Regular rate and rhythm with a normal S1 and S2. No gallops, murmurs, or rubs. Normal PMI, no JVD. No pulse deficits. Respiratory: Lungs have equal breath sounds bilaterally, clear to auscultation and percussion. No rales, rhonchi or wheezes noted. No increased work of breathing, no retractions or nasal flaring. Abdomen/GI: Soft, non-tender, with normal bowel sounds. No distension or tympany. No guarding or rebound. No evidence of tenderness throughout. Back: No spinal tenderness. No costovertebral tenderness. Full range of motion. Skin: Warm, dry with normal turgor. Normal color with no rashes, no lesions, and no evidence of cellulitis. MS/ Extremity: Pulses equal, no cyanosis. Neurovascular intact. Full, normal range of motion. Neuro: Awake and alert, GCS 15, oriented to person, place, time, and situation. Cranial nerves II-XII grossly intact. Motor strength 5/5 in all extremities. Sensory grossly intact. Cerebellar exam normal. Normal gait. Psych: Awake, alert, with orientation to person, place and time. Behavior, mood, and affect are within normal limits. Vital Signs: 17:44 BP 137 / 60; Pulse 81; Resp 18; Temp 97.1(TE); Pulse Ox 100% ; Weight 47.63 kg; Height cm10 5 ft. 3 in. ; 19:00 BP 139 / 61; Pulse 83; Resp 23; Pulse Ox 100% on R/A; km8 20:00 BP 134 / 64; Pulse 90; Resp 18; Pulse Ox 100% on R/A; km8 21:00 BP 127 / 64; Pulse 89; Resp 18; Pulse Ox 98% on R/A; km8 21:30 BP 125 / 61; Pulse 89; Resp 18; Pulse Ox 96% on R/A; km8 17:44 Body Mass Index 18.60 (47.63 kg, 160.02 cm) cm10 MDM: 17:40 Patient medically screened. cp3 21:31 Differential diagnosis: Nonspecific abd pain, viral gastroenteritis, vertgio, cva. Data cp3 reviewed: vital signs, nurses notes, lab test result(s), EKG, radiologic studies. Consideration of Admission/Observation Escalation of care including admission/observation considered. I considered the following discharge prescriptions or medication management in the emergency department Medications were administered in the Emergency Department. See MAR. Independent interpretation of the following test(s) in the Emergency Department kennel helper: rate 83, sinus rhythm. Response to treatment: the patient's symptoms have markedly improved after treatment. ED course: ekg interpreted by me: rate 83, no evidence of acute mi, sinus rhythm. 03/28 19:03 Order name: CBC with Diff; Complete Time: 21:21 cp3 03/28 19:03 Order name: CMP; Complete Time: 20:44 cp3 03/28 19:03 Order name: Lipase; Complete Time: 20:44 cp3 03/28 21:04 Order name: CBC Smear Scan; Complete Time: 21:21 EDMS 03/28 19:01 Order name: EKG; Complete Time: 19:02 db 03/28 19:03 Order name: IV Saline Lock; Complete Time: 19:23 cp3 03/28 19:03 Order name: Labs collected and sent; Complete Time: 19:23 cp3 Administered Medications: 19:31 Drug: NS 0.9% IV 1000 ml IV at 1 bolus Per protocol; 1000 mL bolus Route: IV; Rate: 1 km8 bolus; Site: right antecubital; 21:57 Follow up: IV Status: Completed infusion; IV Intake: 1000ml km8 19:31 Drug: Ondansetron IVP 4 mg IVP once; over 2 minutes Route: IVP; Site: right antecubital;km8 21:57 Follow up: Response: No adverse reaction km8 21:57 Not Given (Patient Refused): morphineor iv 4 mg IVP once over 4 mins km8 21:58 Not Given (pt left before infusion given): ns 0.9% 250 ml IV at bolus once km8 Disposition Summary: 03/28/23 21:04 Discharge Ordered Notes: Location: Home cp3 Condition: Stable cp3 Diagnosis - Diarrhea, unspecified cp3 - Dehydration cp3 Discharge Instructions: - Discharge Summary Sheet cp3 - Dehydration, Adult cp3 - Diarrhea, Adult cp3 Forms: - Medication Reconciliation Form cp3 - Thank You Letter cp3 - Antibiotic Education cp3 - Prescription Opioid Use cp3 - Patient Portal Instructions cp3 - Leadership Thank You Letter cp3 Prescriptions: - Zofran 4 mg Oral Tablet - take 1 tablet ORAL route every 12 hours As needed; 20 tablet; Refills: 0, cp3 Product Selection Permitted - Lomotil 2.5-0.025 mg Oral Tablet - take 1 tablet ORAL route every 6 hours As needed; 20 tablet; Refills: 0, cp3 Product Selection Permitted Signatures: Dispatcher [employer] Vincent Pace MD MD cp3 Beverly Jarquin RN RN cm10 Cary Eaton RN RN km8
[2023-03-28 22:12] VITALS: TEMP 97.1
[2023-03-28 22:25] VITALS: BP 125/61; O2SAT 96
== END 2023-03-28 21:58 | disposition home or self-care (01) ==
LOC: ER 17:32
DX: E86.0 Dehydration (principal); R11.2 Nausea with vomiting, unspecified; E11.9 Type 2 diabetes mellitus without complications; I10 Essential (primary) hypertension
CPT/HCPCS: 96361; 93005; 85025; 36415; 83690; 80053; 96374; 99285; J2405; J7030